=== PATIENT | female | born 1970 | race Caucasian/White ===

== ENCOUNTER → 2019-02-28 | Outpatient (CLI) | payer OTHER ==
[~2019-02-28] MED LIST: LAMO100 PO; METF500 PO; OMEP20ER PO; Prilosec20 MG PO
[2019-03-06 08:08] LABS: HPV 16 Negative (Negative); HPV 18 Negative (Negative); HPV OTHER HR TYPES Negative (Negative)
== END | disposition home or self-care (01) ==
LOC: LAB 14:03 → LAB SHORT 14:03
PROVIDERS: Registered Nurse
DX: Z12.4 Encounter for screening for malignant neoplasm of cervix (principal)
CPT/HCPCS: 87624; G0123

== ENCOUNTER 2019-05-01 10:11 | Day surgery (SDC) | payer OTHER | END 2019-05-01 23:12 | disposition home or self-care (01) | LOC: MOI MAM 10:11 | DX: C50.912 Malignant neoplasm of unspecified site of left female breast (principal); Z17.0 Estrogen receptor positive status [ER+] | CPT/HCPCS: 19081; 88305; 88342; 88360 ==

== ENCOUNTER 2019-05-24 07:13 | Day surgery (SDC) | payer OTHER ==
[2019-05-27] MEDS ORDERED: VITAMIN D31 ML PO (14:03)
== END 2019-05-24 23:11 | disposition home or self-care (01) ==
LOC: MOI MAM 07:13
DX: C50.912 Malignant neoplasm of unspecified site of left female breast (principal); R92.1 Mammographic calcification found on diagnostic imaging of breast
CPT/HCPCS: 19281

== ENCOUNTER 2019-06-06 08:30 | Day surgery (SDC) | payer OTHER ==
[~2019-06-06] VITALS: Ht 159 cm; Wt 100.4 kg
[~2019-06-06 08:30] MED LIST changes: +VITAMIN D31 ML PO
--- NOTE | 2019-06-06 12:27 | NUR ---
"DAY SURGERY RN | REPORT OFF TO ORQUIDEA KIM."
--- NOTE | 2019-06-06 13:23 | NUR ---
06/06/19 1323 Iris Burger ABX
--- NOTE | 2019-06-06 13:55 | NUR ---
PT TO STEP. DRESSING D/I. C/O MILD DISCOMFORT TO SUGERY SITE. BREAST BINDER ON. DR. PATRICK IN TO SEE PT.
--- NOTE | 2019-06-06 14:37 | NUR ---
REPORT TO RISHABH SIMON RN.
--- NOTE | 2019-06-06 14:59 | NUR ---
ASSUMED CARE AND RECEIVED REPORT OF PATIENT FROM JEB KIM. PT ALERT AND ORIENTED. PAIN AT A TOLERABLE LEVEL. DRESSING TO LEFT CHEST AND AXILLA REMAINED CDI T/O RECOVERY. Patient up to Ambulate independently. Gait steady. Discharge instructions reviewed with patient. Patient verbalizes understanding. Copy given to patient to take home. LOCK FOR DRE CATHETER PLACED WITH D/C INSTRUCTIONS. Lungs clear T/O to Auscultation. Patient States Post-Procedure ride home has been arranged. Discharged via wheelchair to private car for ride home. ALL BELONINGS SENT HOME WITH PATIENT.
== END 2019-06-06 23:13 | disposition home or self-care (01) ==
LOC: ORSCMMR 08:30 → ORD 11:00 → ORSCMMR 23:13
PROVIDERS: Surgery
PROC: 0WH803Z Insertion of Infusion Device into Chest Wall, Open Approach (ICD-10-PCS; principal; 2019-06-06 11:00)
DX: C50.912 Malignant neoplasm of unspecified site of left female breast (principal); E11.9 Type 2 diabetes mellitus without complications; E78.5 Hyperlipidemia, unspecified; G40.909 Epilepsy, unspecified, not intractable, without status epilepticus; E66.01 Morbid (severe) obesity due to excess calories; Z68.39 Body mass index [BMI] 39.0-39.9, adult; Z79.84 Long term (current) use of oral hypoglycemic drugs
CPT/HCPCS: 82947; A9270-GY; C1728; J2250; J2704; J3010; J7120

== ENCOUNTER 2022-03-15 09:49 | Day surgery (SDC) | payer OTHER ==
[~2022-03-15] VITALS: Ht 154.9 cm; Wt 94.1 kg
[~2022-03-15 09:49] MED LIST changes: +ASCORBIC ACID500 MG PO; +ASPI325 PO; +MAGNESIUM PO; +Percocet 5-3251 EACH PO; +TAMO10 PO; -VITAMIN D31 ML PO; +VITAMIN D350 MC2 PO
[2022-03-15] MEDS ORDERED: SENNA LAXATIVE8.6 MG (10:26)
[2022-03-15] MEDS ORDERED: VENL75ER (10:27)
== END 2022-03-15 12:28 | disposition home or self-care (01) ==
LOC: ORSCSDS 09:49
PROVIDERS: Student in an Organized Health Care Education/Training Program
PROC: 0DBN8ZX Excision of Sigmoid Colon, Via Natural or Artificial Opening Endoscopic, Diagnostic (ICD-10-PCS; principal; 2022-03-15 11:15)
DX: K59.09 Other constipation (principal); K63.5 Polyp of colon; K57.30 Diverticulosis of large intestine without perforation or abscess without bleeding; K64.8 Other hemorrhoids; K92.1 Melena; K21.9 Gastro-esophageal reflux disease without esophagitis; G47.33 Obstructive sleep apnea (adult) (pediatric); F41.9 Anxiety disorder, unspecified; F31.9 Bipolar disorder, unspecified; E78.5 Hyperlipidemia, unspecified; Z85.3 Personal history of malignant neoplasm of breast; E11.9 Type 2 diabetes mellitus without complications; R56.9 Unspecified convulsions; E66.9 Obesity, unspecified; Z68.39 Body mass index [BMI] 39.0-39.9, adult; Z79.84 Long term (current) use of oral hypoglycemic drugs; Z79.899 Other long term (current) drug therapy
CPT/HCPCS: 82947; 88305; J2704; J7120

== ENCOUNTER 2022-11-18 20:27 | Emergency (ER) | payer OTHER ==
[~2022-11-18] VITALS: Ht 152.4 cm; Wt 101.2 kg
[~2022-11-18 20:27] MED LIST changes: +SENNA LAXATIVE8.6 MG; +VENL75ER
[2022-11-18 20:39] VITALS: BP 145/79
== END 2022-11-18 21:45 | disposition home or self-care (01) ==
LOC: ER 20:27
DX: S83.91XA Sprain of unspecified site of right knee, initial encounter (principal); W17.89XA Other fall from one level to another, initial encounter; Z88.8 Allergy status to other drugs, medicaments and biological substances; Z79.899 Other long term (current) drug therapy
CPT/HCPCS: 73562-RT; 99283-25